=== PATIENT | male | born 1970 | race Caucasian/White ===

== ENCOUNTER → 2017-02-05 | Outpatient (CLI) | payer OTHER ==
--- NOTE | 2017-02-05 11:28 | KCIC ---
INDICATION: Low back pain intermittently for 2 years. Previous discectomy 2 years ago. TECHNIQUE: Sagittal T1, sagittal T2, sagittal STIR, axial T1, and axial T2 sequences are provided. Comparison believed to be the same patient from [facility] is dated February 22, 2016. FINDINGS: There is no malalignment. There is fatty replacement the endplates at several levels. There is no worrisome marrow lesion. Disc desiccation is most notable at L3-L4. Disc height is relatively maintained. Conus medullaris is normal signal intensity and in position. The numbering system assumes 5 lumbar type vertebral bodies. Findings by individual level are as follows: L1-L2: There is no canal or foraminal compromise. L2-L3: There is a disc bulge with central annular fissure. There is minimal facet hypertrophy. There is no canal or foraminal compromise. L3-L4: Mild disc bulge and facet hypertrophy are noted without canal or foraminal compromise. L4-L5: There is a diffuse disc bulge. There is a left foraminal herniation. There is facet hypertrophy which is minimal. Foraminal herniation on the left contacts the exiting nerve root and results in mild foraminal narrowing. There is no canal stenosis. There is no right foraminal narrowing. There probably has been partial laminectomy on the left. Distinguishing between scar tissue and residual or recurrent herniations is difficult without contrast. L5-S1: There is a disc osteophyte complex. There is a central annular fissure with shallow protrusion measuring 17 mm at its base and 4 mm in height. There is no canal stenosis. There is no foraminal narrowing. Overall, findings appear very similar to the 2016 examination. IMPRESSION: Mild degenerative changes in the lumbar spine. There is a foraminal herniation on the left at L4-L5 resulting in foraminal narrowing. Electronically signed by: Keron Ibarra MD (02/05/2017 11:25 AM) [id number]
--- NOTE | 2017-02-05 11:35 | KCIC ---
INDICATION: Neck pain extending into the right trapezius. TECHNIQUE: Sagittal T1, sagittal T2, sagittal STIR, axial T2, and axial T2 gradient sequences are provided. No comparison is available. FINDINGS: There is no malalignment. There is no marrow edema. There is no worrisome marrow lesion. There is disc desiccation with mild narrowing of disc height diffusely. There is fatty replacement of the anterior superior corner of T1. There is no cord signal abnormality. The cervicomedullary junction is unremarkable. Degenerative findings by individual level are as follows: C2-C3: There is no canal or foraminal compromise. C3-C4: There is a disc osteophyte complex and minimal uncinate process spurring without canal or foraminal compromise. C4-C5: There is a disc osteophyte complex and minimal uncinate process spurring without canal or foraminal compromise. C5-C6: There is a disc osteophyte complex and uncinate process spurring. There is mild canal stenosis although midline AP diameter of the thecal sac is still 10 mm. There is bilateral foraminal narrowing, moderate to severe on the left and probably moderate on the right. C6-C7: There is a disc osteophyte complex with left paracentral protrusion. Protrusion measures 10 mm at its base in 3 to 4 mm in height. It narrows the left lateral recess and minimally flattens the cord on the left. There is no cord hyperintensity. There is mild canal stenosis, midline AP diameter of the thecal sac 9 mm. Foraminal narrowing appears mild to moderate. C7-T1: There is no canal or foraminal compromise. IMPRESSION: Degenerative changes in the cervical spine include a left paracentral herniation at C6-C7 which mildly flattens the cord. There is mild canal stenosis at C6-C7 and C5-C6. Foraminal narrowing is greatest at C5-C6. Electronically signed by: Keron Ibarra MD (02/05/2017 11:32 AM) [id number]
== END | disposition home or self-care (01) ==
LOC: KCIC MRI 09:23
DX: M51.26 Other intervertebral disc displacement, lumbar region (principal); M25.78 Osteophyte, vertebrae; M48.02 Spinal stenosis, cervical region; M50.223 Other cervical disc displacement at C6-C7 level
CPT/HCPCS: 72141; 72148

== ENCOUNTER → 2017-07-30 | Outpatient (CLI) | payer OTHER | END | disposition home or self-care (01) | LOC: KCIC MRI 12:21 | DX: M48.54XA Collapsed vertebra, not elsewhere classified, thoracic region, initial encounter for fracture (principal); R60.0 Localized edema | CPT/HCPCS: 72146 ==